=== PATIENT | male | born 1950 | race Caucasian/White ===

== ENCOUNTER 2022-05-25 14:22 | Emergency (ER) | payer OTHER, MEDICARE ==
[~2022-05-25] VITALS: Ht 172.7 cm; Wt 74.8 kg
== END 2022-05-25 18:33 | disposition home or self-care (01) ==
LOC: ER 14:22
DX: S20.212A Contusion of left front wall of thorax, initial encounter (principal); S50.12XA Contusion of left forearm, initial encounter; V89.2XXA Person injured in unspecified motor-vehicle accident, traffic, initial encounter
CPT/HCPCS: 71045; 73110

== ENCOUNTER 2023-12-25 15:35 | Emergency (ER) | payer MEDICARE, OTHER ==
[~2023-12-25] VITALS: Ht 172.7 cm; Wt 77.1 kg
[2023-12-25 16:14] LABS: BASOPHILS ABSOLUTE AUTO 0.06 K/mm3 (0.00-0.23); BASOPHILS PERCENT AUTO 1 % (0-2); EOSINOPHILS PERCENT AUTO 4 % (0-6); IMMATURE GRAN ABSOLUTE AUTO 0.02 K/mm3 (0.00-0.10); IMMATURE GRAN PERCENT AUTO 0 % (0-1); LYMPHOCYTES PERCENT AUTO 25 % (21-46); MONOCYTES ABSOLUTE AUTO 0.52 K/mm3 (0.16-1.47); MONOCYTES PERCENT AUTO 10 % (4-13); Mean Corpuscular HGB 31.4 pg (26.0-34.0); Mean Corpuscular HGB Conc 34.9 g/dL (31.5-36.5); Mean Corpuscular Volume 90 fL (80-100); Mean Platelet Volume 9.5 fL (9.1-12.4); NEUTROPHILS ABSOLUTE AUTO 3.09 K/mm3 (1.96-9.15); NEUTROPHILS PERCENT AUTO 60 % (41-73); Platelet Count 241 K/mm3 (150-400); RDW Coefficient Variation 13.2 % (11.7-14.2); RDW Standard Deviation 43.7 fL (35.1-46.3); Red Blood Cell Count 4.78 M/mm3 (4.30-5.90); White Blood Cell Count 5.19 K/mm3 (4.00-11.30)
[2023-12-25 16:39] LABS: Albumin, Blood 3.6 g/dL (3.4-5.0); Albumin/Globulin Ratio 1.1 (0.8-1.8); Bilirubin, Total 0.4 mg/dL (0.1-1.0); Bun/Creatinine Ratio 17.7 (12.0-20.0); Calcium, Blood 9.2 mg/dL (8.5-10.1); Creatinine, Blood 1.24 mg/dL (0.60-1.20); Globulin, Blood 3.3 g/dL (2.2-4.0); Potassium, Blood 3.6 mmol/L (3.5-5.5); Total Protein, Blood 6.9 g/dL (6.4-8.2)
[2023-12-25 18:58] VITALS: BP 174/83
== END 2023-12-25 19:32 | disposition home or self-care (01) ==
LOC: ER 15:35
PROVIDERS: Student in an Organized Health Care Education/Training Program
DX: R00.2 Palpitations (principal); E78.5 Hyperlipidemia, unspecified; Z88.0 Allergy status to penicillin; Z88.8 Allergy status to other drugs, medicaments and biological substances
CPT/HCPCS: 71046; 80053; 84484; 85025; 93005; 93010; 99285-25

== ENCOUNTER 2024-07-22 07:00 | Day surgery (SDC) | payer MEDICARE, OTHER ==
[2024-07-22] VITALS (13 sets, daily range): BP systolic 109–185; BP diastolic 64–101
[~2024-07-22] VITALS: Ht 172.7 cm; Wt 73.0 kg
[2024-07-22] MEDS ORDERED: Nitroglycerin 2 MG/20 ML BTL ONE (07:28)
[2024-07-22] MEDS ORDERED: NS 1,000 ML IV ONE ×3 (07:28→10:32)
[2024-07-22] MEDS ORDERED: Heparin Sodium 1000 Units/ML 10ML MDV ONE ×3 (07:28→09:57)
[2024-07-22] MEDS ORDERED: NS 250 ML IV ONE (07:28)
[2024-07-22] MEDS ORDERED: Verapamil HCL 2.5 MG/ML 2ML Injection ONE (07:28)
[2024-07-22] MEDS ORDERED: Aspir 8181 MG PO (07:29)
[2024-07-22] MEDS ORDERED: OLME20 PO (07:29)
[2024-07-22] MEDS ORDERED: ATOR20 PO (07:29)
[2024-07-22] MEDS ORDERED: Midazolam HCl 1MG / ML 2ML Vial ONE (07:42)
[2024-07-22] MEDS ORDERED: FentaNYL Citrate 50 MCG/ML 2 ML Injection ONE (07:42)
[2024-07-22] MEDS ORDERED: Ticagrelor 90 MG TABLET ONE (08:45)
[2024-07-22] MEDS ORDERED: NS 500 ML IV ONE (09:14)
[2024-07-22] MEDS ORDERED: Phenylephrine HCl 100 MCG/ML-NS 10MLSYR (1MG/10ML) ONE (10:32)
--- NOTE | 2024-07-22 10:58 | NUR ---
PT RETURNED TO RECOVERY ROOM IN [facility]. RIGHT RADIAL TR BAND SITE SOFT NON-TENDER WITH NO HEMATOMA, NO PULSATILE BLEEDING AND RIGHT WRIST BOARD IN PLACE. PT DENIES CHEST PAIN. CALL LIGHT IN REACH. PT'S IN ROOM.
--- NOTE | 2024-07-22 11:14 | NUR ---
PATIENT AMBULATING AND VOIDING WITHOUT DIFFICULTY. R TR BAND IN PLACE. SITE C/D/I SOFT/NONTENDER, NO EVIDENCE OF BLEEDING. VSS ON RA
[2024-07-22] MEDS ORDERED: TICA90TA PO (11:23)
[2024-07-22] MEDS ORDERED: HYDCHL25 PO (11:24)
--- NOTE | 2024-07-22 11:29 | NUR ---
PATIENT PRESENT AT BEDSIDE DISCUSSING RESULTS OF ANGIOGRAM
--- NOTE | 2024-07-22 11:49 | NUR ---
NO CHANGES TO R RAD TR BAND SITE.
--- NOTE | 2024-07-22 11:55 | NUR ---
SPO2 PROBE HAS BEEN ON RIGHT INDEX FINGER SINCE ARRIVAL BACK TO RECOVERY ROOM.L
--- NOTE | 2024-07-22 12:52 | NUR ---
10 CC OF AIR REMOVED OUT OF NOW DEFLATED RIGHT TR BAND OVER 15 MIN. RIGHT RAD SITE SOFT NON-TENDER WITH NO HEMATOMA, NO PULSATILE BLEEDING. SLIGHT HEMATOMA NOTED PROX TO TR BAND PRESSURE HELD FOR 10 MIN NOW HEMATOMA REDUCED. DISCHARGE INSTRUCTIONS REVIEWED ALL QUESTIONS ANSWERED.
--- NOTE | 2024-07-22 13:18 | NUR ---
NO CHANGES TO R RAD TR BAND SITE.
--- NOTE | 2024-07-22 13:30 | NUR ---
NO CHANGES TO R RAD DEFLATED TR BAND SITE. PT AMBULATED TO BR TO VOID.
--- NOTE | 2024-07-22 14:15 | NUR ---
DEFLATED RIGHT TR BAND REMOVED AND POLYMEM PLACED OVER RIGHT RADIAL SITE WITH WRIST BOARD IN PLACE. R RAD SITE STILL SOFT NON-TETNDER WTIH NO HEMATOMA, NO PULSATILE BLEEDING. 20 G IV DISCONTINUED FROM LEFT AC WITH INTACT CANNULA. PT ESCORTED OUT VIA WHEELCHAIR ESCORT.
== END 2024-07-22 15:35 | disposition home or self-care (01) ==
LOC: MHTC 07:00
DX: I25.9 Chronic ischemic heart disease, unspecified (principal); I48.0 Paroxysmal atrial fibrillation; E78.00 Pure hypercholesterolemia, unspecified; I10 Essential (primary) hypertension; Z88.8 Allergy status to other drugs, medicaments and biological substances
CPT/HCPCS: 76937; 85347; 92978; 92979; 93458; 93571; 99152; 99153; A9270; C1725; C1753; C1769; C1874; C1887; C1894; C9600; C9601; J1644; J2250; J2371; J3010; J7030; J7040; J7050; Q9967